=== PATIENT | male | born 2005 | race Caucasian/White ===

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

== ENCOUNTER 2023-12-06 19:26 | Emergency (ER) | payer MEDICAID, SELFPAY ==
[2023-12-06 19:39] VITALS: BP 149/78; PULSE 87; RESP 16; TEMP 37; O2SAT 99
--- NOTE | 2023-12-06 20:00 | DI.CT_ITS ---
Exam(s) CT LUMBAR SPINE WO EXAM: CT LUMBAR SPINE WO CLINICAL HISTORY: pain post hyper extension injury skiing. TECHNIQUE: Imaging Protocol: Axial computed tomography images with coronal and sagittal reformatted images were created and reviewed. COMPARISON: CR XR LUMBAR SPINE COMPLETE from 08/15/2021 FINDINGS: Bones: No fractures or dislocations are seen. The alignment of the spine is normal including the thor acolumbar junction. Soft tissues: The soft tissues of the visualized abdomen and chest are unremarkable. No large disk he rniations are identified. IMPRESSION: No acute fracture or subluxation in the lumbar spine. RADIATION DOSE DELIVERED: Total DLP Total DLP DATA REPOSITORY: All CT scans at this facility are submitted to the National Radiology Data Registry (NRDR) Dose Index Registry (DIR) with the [employer] (ACR). RADIATION OPTIMIZATION: All CT scans at this facility use at least one of these dose optimization te chniques: automated exposure control; mA and/or kV adjustment per patient size (includes targeted exa ms where dose is matched to clinical indication); or iterative reconstruction.
--- NOTE | 2023-12-06 21:25 | DI.VRAD_ITS ---
PROCEDURE INFORMATION: Exam: CT Lumbar Spine Without Contrast Exam date and time: 12/06/2023 8:50 PM Age: 18 years old Clinical indication: Injury or trauma; Other: Ski injury; Blunt trauma (contusions or hematomas); Injury date: 12/05/23; Injury details: Pain post hyper extension injury skiing TECHNIQUE: Imaging protocol: Computed tomography of the lumbar spine without contrast. Radiation optimization: All CT scans at this facility use at least one of these dose optimization techniques: automated exposure control; mA and/or kV adjustment per patient size (includes targeted exams where dose is matched to clinical indication); or iterative reconstruction. COMPARISON: CR XR LUMBAR SPINE COMPLETE 08/15/2021 2:43 PM FINDINGS: Bones/joints: No acute fracture. Normal alignment. No significant disc bulge or herniation. No severe spinal canal stenosis. No significant neural foraminal narrowing. Soft tissues: Unremarkable. IMPRESSION: No acute findings. Dictated and Authenticated by: Micheal Don MD. Ordering:ROCAEL Belcher MD
--- NOTE | 2023-12-06 22:51 | ED.GENADUL_ITS ---
Discharge Plan Disposition Patient Disposition: Home Condition: Stable Discharge Details Clinical Impression: Lumbar back pain Primary Care Provider: Dorota Garcia ED Provider: Simi Abreu Home Meds and New Rx's Prescriptions: New cyclobenzaprine 10 mg tablet 10 mg PO Q8H Qty: 10 0RF Discontinued amoxicillin-pot clavulanate 875-125 mg tablet 1 tab PO BID Qty: 20 0RF Rx Instructions: Take with meals. Discharge Instructions Instructions: Low Back Strain (ED) Additional Instructions: Take ibuprofen 600 mg every 8 hours with food You may take Tylenol 650 as needed for breakthrough pain, there is no evidence of fracture on your CAT scan Take Flexeril as needed for musculoskeletal pain, do not operate your vehicle or consume alcohol 8 hours after taking this medication Please return should you have strength or sensation changes, changes in bowel or bladder, or groin numbness, or should any new or worsening symptoms present Referrals: Dorota Garcia, WHOLESALE MANAGER [Primary Care Provider] - 1 day HPI General Date/Time Provider Initiated Documentation: 12/06/23 19:56 . HPI Narrative: This 18-year-old male presents after a reported scorpion injury while skiing. He states he went over a jump and landed on his chest with his legs extending above his head. He denies any head injury or loss of consciousness. He denies any neck pain. The event occurred yesterday. There was no other injury. He denies any abdominal pain or back pain. He denies any strength or sensation changes to his extremities or changes in bowel or bladder. He denies any groin numbness. Related Data Home Medications Medication Instructions Recorded Confirmed cyclobenzaprine 10 mg tablet 10 mg PO Q8H #10 tabs 12/06/23 Previous Rx's Medication Instructions Recorded cyclobenzaprine 10 mg tablet 10 mg PO Q8H #10 tabs 12/06/23 Allergies Allergy/AdvReac Type Severity Reaction Status Date / Time acetaminophen AdvReac rash Verified 12/06/23 19:44 [From Tylenol-Codeine #3] codeine phosphate AdvReac rash Verified 12/06/23 19:44 [From Tylenol-Codeine #3] General Stated Complaint: Nk/Back Pain RIKI: 4 Course Vital Signs Vital signs: Vital Signs Temperature 37.0 C 12/06/23 19:39 Pulse 87 12/06/23 19:39 Respiratory Rate 16 12/06/23 19:39 Blood Pressure 149/78 H 12/06/23 19:39 Pulse Oximetry 99 12/06/23 19:39 Temperature 37.0 C 12/06/23 19:39 Temperature Source Temporal Artery Scan 12/06/23 19:39 Pulse 87 12/06/23 19:39 Respiratory Rate 16 12/06/23 19:39 Respiratory Effort Normal, Non-Labored 12/06/23 19:45 Blood Pressure 149/78 H 12/06/23 19:39 Blood Pressure Position Sitting 12/06/23 19:39 Pulse Oximetry 99 12/06/23 19:39 Oxygen Delivery Method Room Air 12/06/23 19:39 Oxygen Flow Rate 0 12/06/23 19:39 Pain Level 7 12/06/23 20:09 Medical Decision Making This 18-year-old male presents with report of back pain after a ski injury, given the mechanism and level of discomfort, I did order CT lumbar spine for additional assessment CT lumbar spine does not show evidence of acute abnormality Patient is neurovascularly intact, he has reproducible tenderness around the L2- L3 region, CT per radiology interpretation my review is negative for acute pathology No abdominal tenderness appreciated, no visible signs of trauma appreciated, negative Babinski, no CVA tenderness Ambulatory with steady gait, strength and sensation intact distally Return precautions reviewed and patient expressed understanding Flexeril prescribed for home as needed Quality:SDOH Health Related Social Needs: No Data to Display PFSH All Active Problems (Updated 12/06/23 @ 21:29 by YE Berger) Lumbar back pain (Acute) Chronic thoracic back pain (Acute) Family history of hypercholesterolemia (Acute) maternal side. Do lipids as older adolescent Routine child health exam (Acute 07/17/13) Idiopathic urticaria (Acute 10/04/15) followed by tami allergy- rec 4x daily dosing antihistamines Medical History Influenza 05/27/19 viral flu, was told over the phone, temps of 104 Allergy to seafood (05/29/15) Tested, not allergic Redundant prepuce and phimosis (12/01/12) Pneumonia Winter of 2014- Influenza Hospitalized with dehydration Surgical History Tonsillectomy and adenoidectomy Family History Mother No problems noted. Social History Smoking/Tobacco Use Status: Never Second Hand Exposure: Yes Smoking risk assessment performed?: Yes Alcohol Intake: never Drug use: Occasionally Substance use type: marijuana Adopted: No Foster care: No Housing: apartment Pets and animals: Yes Pets and animals: cat(s) and dog(s) Current gender identity: male What type of physical activity do you participate in: other Details: Soccer, skiing, [employer] frisbee, track Seatbelt use: always Helmet use: Yes Water heater temp set <120 deg: Yes Fire extinguisher in home: Yes Carbon monox detector in home: Yes Firearms in home: No Do you feel safe at home: Yes Do you feel safe in your relationship?: Yes
== END 2023-12-06 21:51 | disposition home or self-care (01) ==
PROVIDERS: Emergency Provider Physician Assistant; PCP Nurse Practitioner Family
DX: M54.50 Low back pain, unspecified (principal); V00.321A Fall from snow-skis, initial encounter; Y93.23 Activity, snow (alpine) (downhill) skiing, snowboarding, sledding, tobogganing and snow tubing
CPT/HCPCS: 99284; 72131; 99283